=== PATIENT | female | born 1950 | race Caucasian/White ===

== ENCOUNTER → 2017-10-22 13:15 | Outpatient (CLI) | payer MEDICARE, OTHER, SELFPAY ==
--- NOTE | 2017-10-22 | DI.MRI.S_ITS ---
PROCEDURE: MR HIP LT WO CON INDICATIONS: PAIN IN LEFT HIP TECHNIQUE: Noncontrast coronal T1 spin echo and STIR through the bony pelvis. Coronal and axial T2 fast spin echo with fat saturation, sagittal T1 spin echo, and oblique axial T2 fast spin echo with fat saturation through the hip. COMPARISON: [facility], CR, XR PELVIS WITH LATERAL HIP LEFT, 09/07/2017, 15:57. FINDINGS: Image quality: Excellent. Bones and joints: Bone marrow of the pelvic ring and proximal femurs show normal signal throughout. There is moderate periarticular osteophyte formation at the bilateral hip joints. No intraosseous lesions or fractures. No avascular necrosis of the femoral heads. The visualized lower lumbar spine appears normally aligned. Tendons and ligaments: The gluteus medius and minimus tendons appear intact, without associated muscle atrophy. The nearby proximal iliotibial band also appears intact. The iliopsoas tendon appears intact, without adjacent bursal fluid collections or evidence for impingement syndrome. The origin of the hamstring tendon is intact at the ischial tuberosity, as well as the associated sacrotuberous ligament. The straight and reflected heads of the rectus femoris muscle origin appear intact, as well as the conjoint tendon. The ligamentum teres appears intact where visualized. Labrum and cartilage: Amorphous high signal intensity throughout the anterosuperior and mid hip labrum. Cartilage surface of the femoral head appears of normal thickness. Soft tissues: Visualized muscles demonstrate normal bulk and internal signal. Minimal fluid adjacent to the left hip greater trochanter. Quadratus femoris muscle demonstrates no internal edema to suggest ischiofemoral impingement. The proximal sciatic neurovascular bundle appears normal adjacent to the hamstring tendons. No free pelvic fluid. Bladder wall thickness is normal. Multiple low T2 intensity foci within the uterine parenchyma are present. A 60 mm diameter right adnexal focus is present, demonstrating high T1 and low STIR signal intensity. IMPRESSION: 1. Bilateral hip osteoarthritis. No fracture. 2. Minimal left trochanteric bursitis. 3. Degenerative left hip labral tearing. 4. Findings suggestive of a right adnexal dermoid or teratoma. Pelvic ultrasound examination is recommended. 5. Uterine fibroids. Dictated by: Vimal Christianson M.D. on 10/22/2017 at 14:31 Approved by: Vimal Christianson M.D. on 10/22/2017 at 14:36
== END ==
PROVIDERS: PCP Family Medicine; Visit Provider Orthopaedic Surgery
DX: M25.552 Pain in left hip (principal); M16.12 Unilateral primary osteoarthritis, left hip; M70.62 Trochanteric bursitis, left hip; S73.102A Unspecified sprain of left hip, initial encounter
CPT/HCPCS: 73721

== ENCOUNTER → 2017-11-26 14:58 | Outpatient (CLI) | payer MEDICARE, OTHER, SELFPAY ==
--- NOTE | 2017-11-26 | DI.US.S_ITS ---
PROCEDURE: US PELVIC COMPLETE INDICATIONS: RIGHT ADNEXAL MASS TECHNIQUE: Real-time scanning was performed of the pelvic organs, with image documentation. Additional endovaginal scanning was necessary due to incomplete visualization of the adnexal and endometrial structures by transabdominal scanning. COMPARISON: None. FINDINGS: Transabdominal scanning: Limited scanning through the kidneys shows no hydronephrosis. The kidneys measure 12.8 CM right and 12.3 CM left. No pathologic free abdominal or pelvic fluid. Endovaginal scanning: Uterus: Uterus is normal in size at 2.5 x 4.8 x 4.9 cm. The endometrium measures 2.6 mm in combined thickness. There is a right posterior intramural fibroid measuring 1.1 x 1.3 x 1.5 cm; a mid antral posterior submucosal fibroid measuring 0.8 x 1.0 x 1.0 cm; and a left posterior intramural fibroid measuring 0.5 x 1.0 x 1.0 cm. Ovaries: Right ovary appears normal measuring 17 x 29 x 32 mm. Left ovary is not visualized despite transvaginal imaging. IMPRESSION: 1. Fibroid uterus including a small 1 cm submucosal fibroid, and 2 intramural fibroids the largest at 1.5 cm. 2. Nonvisualized left ovary, normal right ovary. Dictated by: Pradeep Davis M.D. on 11/26/2017 at 15:58 Approved by: Pradeep Davis M.D. on 11/26/2017 at 16:02
--- NOTE | 2017-11-26 15:38 | DI.MG.S_ITS ---
Patient Name: ZUNILDA JULIO date: 1950 Sex: F Attending Physician: REJI Indications: Date: 11/26/2017 15:03 At the request of: MATTHEW MENDOZA Procedure: MM screening mammo BI BILATERAL DIGITAL SCREENING MAMMOGRAM 3D/2D WITH CAD: 11/26/2017 CLINICAL: Routine screening. Family history of breast cancer. Comparison is made to exams dated: 03/02/2016 mammogram, 03/31/2015 mammogram, and 03/27/2013 mammogram - [facility]. There are scattered fibroglandular elements in both breasts. Current study was also evaluated with a Computer Aided Detection (CAD) system. No significant masses, calcifications, or other findings are seen in either breast. IMPRESSION: NEGATIVE There is no mammographic evidence of malignancy. A 1 year screening mammogram is recommended. This exam was interpreted at Station ID: [id number]. NOTE: For mammograms, a report in lay terms will be sent to the patient. Approximately 15% of breast malignancies will not be visualized mammographically. In the management of a palpable breast mass, a negative mammogram must not discourage biopsy of a clinically suspicious lesion. Electronically Signed By: Brady merritt/denice:11/26/2017 19:58:24 letter sent: Normal Exam ACR BI-RADS Category 1: Negative 3341F
== END ==
PROVIDERS: PCP Family Medicine; Visit Provider Family Medicine
DX: Z12.31 Encounter for screening mammogram for malignant neoplasm of breast (principal); Z80.3 Family history of malignant neoplasm of breast; D25.0 Submucous leiomyoma of uterus
CPT/HCPCS: 76830; 76856; 77063; 77067

== ENCOUNTER → 2020-12-22 15:22 | Outpatient (CLI) | payer MEDICARE, OTHER, SELFPAY ==
--- NOTE | 2020-12-22 15:28 | DI.MG.S_ITS ---
BILATERAL DIGITAL SCREENING MAMMOGRAM 3D/2D WITH CAD: 12/22/2020 CLINICAL: Routine screening. Family history of breast cancer. Comparison is made to exams dated: 11/26/2017 mammogram - [facility], 03/02/2016 mammogram, and 03/31/2015 mammogram - [facility]. There are scattered fibroglandular elements in both breasts. Current study was also evaluated with a Computer Aided Detection (CAD) system. No significant masses, calcifications, or other findings are seen in either breast. There has been no significant interval change. IMPRESSION: NEGATIVE There is no mammographic evidence of malignancy. A 1 year screening mammogram is recommended. This exam was interpreted at Station ID: [id number]. NOTE: For mammograms, a report in lay terms will be sent to the patient. Approximately 15% of breast malignancies will not be visualized mammographically. In the management of a palpable breast mass, a negative mammogram must not discourage biopsy of a clinically suspicious lesion. Electronically Signed By: Jose dong/denice:12/22/2020 17:35:21 letter sent: Normal Exam ACR BI-RADS Category 1: Negative 3341F
== END ==
PROVIDERS: PCP Family Medicine; Referring Provider Family Medicine; Visit Provider Family Medicine
DX: Z12.31 Encounter for screening mammogram for malignant neoplasm of breast (principal); Z80.3 Family history of malignant neoplasm of breast
CPT/HCPCS: 77063; 77067